=== PATIENT | male | born 1950 | race Caucasian/White ===

== ENCOUNTER 2021-05-07 11:31 | Inpatient (IN) | payer MEDICARE ==
[~2021-05-07] VITALS: Ht 170.2 cm; Wt 105.7 kg
[2021-05-07 12:01] LABS: HEMATOCRIT 29.2 % (36.7-47.1); MEAN CORPUSCULAR HEMOGLOBIN 32.4 uug (23.8-33.4); MEAN CORPUSCULAR VOLUME 92.8 fL (73.0-96.2); PLATELET COUNT (AUTO) 265 K/uL (152-348)
[2021-05-07 12:09] LABS: CARBON DIOXIDE 25 mmol/L (21-32); CHLORIDE 98 mmol/L (98-107); CREATININE 1.1 mg/dL (0.6-1.3); GLUCOSE 81 mg/dL (74-106); POTASSIUM 4.2 mmol/L (3.5-5.1); UREA NITROGEN, BLOOD 18 mg/dL (7-18)
[2021-05-07 12:11] LABS: ETHANOL < 3 MG/DL (0-0)
[2021-05-07 12:22] LABS: ALANINE AMINOTRANSFERASE 39 U/L (16-63); ALKALINE PHOSPHATASE 67 U/L (50-136); ASPARTATE AMINOTRANSFERASE 28 U/L (15-37); BILIRUBIN,DIRECT 0.1 mg/dL (0.0-0.2); BILIRUBIN,TOTAL 0.2 mg/dL (0.2-1.0); TOTAL PROTEIN, SERUM 7.6 g/dL (6.4-8.2)
[2021-05-07 12:25] LABS: ACETAMINOPHEN < 2.0 ug/mL (10-30)
[2021-05-07] MEDS ORDERED: RISP2TAB5 PO (12:26)
[2021-05-07] MEDS ORDERED: BENZ0.5T43 PO (12:26)
[2021-05-07] MEDS ORDERED: METF-866 PO (12:26)
[2021-05-07] MEDS ORDERED: OLAN5TAB70 PO (12:28)
[2021-05-07] MEDS ORDERED: ASCO500C18 PO (12:28)
[2021-05-07] MEDS ORDERED: LISI20TA30 PO (12:28)
[2021-05-07] MEDS ORDERED: PIOG45TA64 PO (12:30)
[2021-05-07] MEDS ORDERED: ATOR40TA29 PO (12:30)
[2021-05-07] MEDS ORDERED: REPA2TAB10 PO (12:30)
[2021-05-07] MEDS ORDERED: NA P133E RC (12:33)
[2021-05-07] MEDS ORDERED: MAGN400O6 PO (12:33)
[2021-05-07] MEDS ORDERED: BISA10SU61 RC (12:33)
[2021-05-07] MEDS ORDERED: LACT10SO7 PO (12:39)
[2021-05-07] MEDS ORDERED: ACET325T53 PO (12:39)
--- NOTE | 2021-05-07 12:41 | NUR ---
Medically cleared by Dr Harris, pending psych crisis evaluation@this time
--- NOTE | 2021-05-07 12:52 | NUR ---
Patient talked and said," Nurse, can you charge my cellphone? It is an [employer]."
--- NOTE | 2021-05-07 12:56 | NUR ---
Additionally, patient said, " Can I have something to drink so i can provide urine?" Diet Coke and water were provided.
--- NOTE | 2021-05-07 13:00 | NUR ---
Patient said, "Can I have something to eat?" Calm & cooperative@this time.
--- NOTE | 2021-05-07 13:05 | NUR ---
Patient is eating hot lunch tray with very good appetite.
[2021-05-07 13:31] LABS: *BILIRUBIN,URIN NEGATIVE (NEGATIVE); *BLOOD, URINE NEGATIVE (NEGATIVE); *CLARITY,URINE CLEAR (CLEAR); *COLOR,URINE YELLOW (YELLOW); *KETONES,URINE NEGATIVE (NEGATIVE); *UROBILINOGEN,URINE 0.2 E.U./dl (NORMAL); LEUKOCYTE ESTERASE ,URINE NEGATIVE (NEGATIVE); NITRITE, URINE NEGATIVE (NEGATIVE); PH,URINE 5.5 (5.0-8.0); UGLUCOSE NEGATIVE (NEGATIVE)
[2021-05-07 13:38] LABS: *AMPHETAMINE, URINE NEGATIVE (NEGATIVE); *CANNABINOID, URINE NEGATIVE (NEGATIVE); *COCCAINE, URINE NEGATIVE (NEGATIVE); *OPIATE, URINE NEGATIVE (NEGATIVE); *PHENCYCLIDINE SCREEN,URINE NEGATIVE (NEGATIVE)
--- NOTE | 2021-05-07 13:52 | NUR ---
Elias Lopez is here in ER.
--- NOTE | 2021-05-07 14:56 | NUR ---
Pt. admitted to [facility] , under care of Dr. Estevez. Belongs List completed. MRSA swab collected & sent to lab. SBAR to MHU nurse Freddie, pending admitting papers@this time.
--- NOTE | 2021-05-07 15:45 | NUR ---
GPS: Nursing Notes: Admitting Notes: Patient is awake and responding to his name, admitted to [facility]HU on 5150 DTS due to keep saying that he wants to to the staff and psychiatrist, patient wanted the [facility] to come and take him, A/Ox3, following staff directions, poor historian, evasive when questioned by staff, unkempt appearance, having wound on his back and left arm, wound care consultation order, Dr. Estevez and Dr. Bhatt informed of admission by the charge nurse, oriented to the unit by staff, admitting package given to the patient, continue to monitor for safety, continue with treatment plan.
[2021-05-07] MEDS ORDERED: ACETAMINOPHEN 325 MG TABLET PO PRN (16:00)
[2021-05-07] MEDS ORDERED: MAG HYDROX/AL HYDROX/SIMETH 30 ML LIQUID UDC PO PRN (16:00)
[2021-05-07] MEDS ORDERED: MAGNESIUM HYDROXIDE 30 ML LIQUID UDC PO PRN ×2 (16:00→18:15)
[2021-05-07] MEDS ORDERED: BLOOD SUGAR DIAGNOSTIC 1 EACH STRIP VI ONE (16:30)
[2021-05-07 17:58] VITALS: BP 103/53
[2021-05-07] MEDS ORDERED: FLEET ENEMA 133 ML BOTTLE RC PRN (18:15)
[2021-05-07] MEDS ORDERED: BISACODYL 10 MG SUPP.RECT RC PRN (18:15)
[2021-05-07] MEDS ORDERED: DEXTROSE 50% 50 ML DISP.SYRIN IV PRN (18:30)
[2021-05-07 19:46] VITALS: BP 112/54
[2021-05-07] MEDS: BLOOD SUGAR DIAGNOSTIC 1 EACH STRIP VI SCH (19:52)
[2021-05-07] MEDS: ATORVASTATIN 40 MG TABLET PO SCH (20:18)
[2021-05-07] MEDS ORDERED: ZOLPIDEM 5 MG TABLET PO PRN (22:45)
--- NOTE | 2021-05-08 01:11 | NUR ---
Received patient in his room with his eyes shut. This real estate underwriter was aware of the patient being awake. The patient would not speak to this real estate underwriter, only nod yes or no when asked questions. The patient refused to shower, refused insulin, ate food from the trash. The patient nodded no when asked if suicidal at that time. He did however come out of his room and sat in the day room for a hour. Safety stratiges are in place and continuing to monitor for compliance and behavior escalation.
[2021-05-08] MEDS: BLOOD SUGAR DIAGNOSTIC 1 EACH STRIP VI SCH ×4 (06:23→20:10)
[2021-05-08 07:23] LABS: CREATININE 1.1 mg/dL (0.6-1.3); POTASSIUM 4.5 mmol/L (3.5-5.1)
[2021-05-08 07:33] LABS: HEMATOCRIT 32.3 % (36.7-47.1); MEAN CORPUSCULAR HEMOGLOBIN 31.6 uug (23.8-33.4); PLATELET COUNT (AUTO) 331 K/uL (152-348)
[2021-05-08 08:00] LABS: PHOSPHOROUS 3.2 mg/dL (2.5-4.9)
[2021-05-08 08:01] VITALS: BP 120/69
[2021-05-08] MEDS: INSULIN REGULAR, HUMAN 300 UNIT/3 ML VIAL SQ PRN (08:32)
[2021-05-08] MEDS: METFORMIN XR 500 MG TAB.SR.24H PO SCH ×2 (08:34→17:00)
[2021-05-08] MEDS: ASCORBIC ACID 500 MG TABLET PO SCH (08:34)
[2021-05-08] MEDS: REPAGLINIDE 1 MG TABLET PO SCH (08:34)
[2021-05-08] MEDS ORDERED: REPAGLINIDE 2 MG PO SCH (09:00)
[2021-05-08] MEDS ORDERED: ASCORBIC ACID PO SCH (09:00)
--- NOTE | 2021-05-08 10:45 | NUR ---
GPS: Nursing Notes: Destructive Behavior To Self: Patient is awake and responding to his name, following staff directions, but selectively mute, episodes of talking to staff, denies SI, unkempt appearance, refusing to shower, evasive when questioned by staff, depressed mood and anxious affect at times, unable to formulate a viable for self care, continue to monitor for safety, poor eyes contact, continue with treatment plan.
--- NOTE | 2021-05-08 11:55 | NUR ---
WOUND CARE CONSULT: PT PRESENTS WITH WOUNDS/LESIONS TO LEFT UPPER ARM AND TO BACK, UNKNOWN ETIOLOGY, PRESENT ON ADMISSION. SEROSANGUINOUS DRAINAGE NOTED. SURGICAL CONSULT CALLED TO DR GUEVARA. PT IS AMBULATORY AND CONTINENT. IN AGREEMENT WITH PLAN OF CARE.
--- NOTE | 2021-05-08 12:19 | NUR ---
LALA Initial Discharge Plan: Per 5150 hold, pt was brought to [facility] from [facility] ([phone]) on a 5150 hold for a danger to himself. Pt currenty resides at [facility]. LALA contacted pt's DPOA, Julienne Kaminski ([phone]) for a call back to discuss pt's discharge plan. LALA will continue to work with pt, family and MD for a safe and proper discharge plan.
--- NOTE | 2021-05-08 12:20 | NUR ---
LALA Admit Source: Per 5150 hold, pt was brought to [facility] from [facility] ([phone]) on a 5150 hold for a danger to himself. Pt currenty resides at [facility]. LALA contacted pt's DPOA, Julienne Kaminski ([phone]) for a call back to discuss pt's discharge plan. LALA will continue to work with pt, family and MD for a safe and proper discharge plan.
[2021-05-08] MEDS ORDERED: LIDOCAINE 2%-EPI 1:100,000 20 ML VIAL IJ ONE (14:00)
[2021-05-08] MEDS ORDERED: SILVER NITRATE APPLICATOR STICK EACH TP ONE (14:00)
[2021-05-08] MEDS: OXCARBAZEPINE 300 MG TABLET PO SCH ×2 (14:46→20:11)
[2021-05-08] MEDS: BENZTROPINE MESYLATE 0.5 MG TABLET PO SCH ×2 (14:46→20:11)
[2021-05-08] MEDS: risperiDONE 2 MG TABLET PO SCH ×3 (14:46→20:11)
[2021-05-08] MEDS: OLANZAPINE 5 MG TABLET PO SCH ×2 (14:46→17:00)
[2021-05-08 15:48] LABS: THYROID STIMULATING HORMONE 2.347 mIU/mL (0.358-3.740)
[2021-05-08 15:52] VITALS: BP 126/66
--- NOTE | 2021-05-08 16:42 | NUR ---
BS check done to patient;. compliant. BS reading 80mg/dL. no coverage needed
[2021-05-08 20:04] VITALS: BP 124/64
[2021-05-08] MEDS: ATORVASTATIN 40 MG TABLET PO SCH (20:11)
[2021-05-09] MEDS: BLOOD SUGAR DIAGNOSTIC 1 EACH STRIP VI SCH ×4 (06:34→20:57)
[2021-05-09 07:30] VITALS: BP 133/71
[2021-05-09] MEDS: REPAGLINIDE 1 MG TABLET PO SCH (08:07)
[2021-05-09] MEDS: METFORMIN XR 500 MG TAB.SR.24H PO SCH ×2 (08:07→16:22)
[2021-05-09] MEDS: OXCARBAZEPINE 300 MG TABLET PO SCH ×2 (08:08→20:56)
[2021-05-09] MEDS: ASCORBIC ACID 500 MG TABLET PO SCH (08:08)
[2021-05-09] MEDS: OLANZAPINE 5 MG TABLET PO SCH ×3 (08:08→16:22)
[2021-05-09] MEDS: BENZTROPINE MESYLATE 0.5 MG TABLET PO SCH ×2 (08:08→16:22)
[2021-05-09] MEDS: risperiDONE 2 MG TABLET PO SCH ×3 (08:08→20:56)
[2021-05-09] MEDS ORDERED: LIDOCAINE 2%-EPI 1:100,000 20 ML VIAL IJ ONE (09:00)
[2021-05-09] MEDS ORDERED: SILVER NITRATE APPLICATOR STICK EACH TP ONE (09:00)
--- NOTE | 2021-05-09 15:00 | NUR ---
Assisted Dr Noa Andres with biopsy to the mid back. Patient tolerated well, denies pain. dressing done by . sample sent by Dr Andres to the lab. Will continue to monitor.
[2021-05-09 16:00] VITALS: BP 151/70
--- NOTE | 2021-05-09 18:45 | NUR ---
Patient remained stable. compliant with meds. denies SI or harm to others. participated in the group. no distress identified. all needs attended. all due meds given. safety measures maintained. will endorse to the next shift for continuity of care.
[2021-05-09 20:00] VITALS: BP 121/62
--- NOTE | 2021-05-09 20:00 | NUR ---
RECEIVED PATIENT IN THE DAYROOM WATCHING TV. HE IS NOTED A/O X 3. HE IS NOTED WITH LOW MOOD. PATIENT ONLY ANSWER QUESTIONS WITH A "YES" OR "NO". HE YARD HOSTLER WHAT HE WANTS OR NEED. HE MAKES HIS NEEDS KNOWN BY WRITING ON PAPER. PATIENT DENIED SI, HE IS ABLE TO CFS. HE IS REASSURED FOR HIS SAFETY. SAFETY AND FALL PRECAUTION IN PLACE. V/S STABLE, HE WAS GIVEN PO FLUIDS AND SNACKS. WILL CONTINUE TO MONITOR Q15 MIN CHECK.
[2021-05-09] MEDS: ATORVASTATIN 40 MG TABLET PO SCH (20:56)
[2021-05-09] MEDS: INSULIN REGULAR, HUMAN 300 UNIT/3 ML VIAL SQ PRN (21:07)
[2021-05-10] MEDS: BLOOD SUGAR DIAGNOSTIC 1 EACH STRIP VI SCH ×4 (06:32→20:34)
[2021-05-10 07:30] VITALS: BP 136/91
[2021-05-10] MEDS: OXCARBAZEPINE 300 MG TABLET PO SCH ×2 (08:24→20:34)
[2021-05-10] MEDS: ASCORBIC ACID 500 MG TABLET PO SCH (08:25)
[2021-05-10] MEDS: OLANZAPINE 5 MG TABLET PO SCH ×3 (08:25→17:15)
[2021-05-10] MEDS: risperiDONE 2 MG TABLET PO SCH ×3 (08:25→20:33)
[2021-05-10] MEDS: REPAGLINIDE 1 MG TABLET PO SCH (08:29)
[2021-05-10] MEDS: BENZTROPINE MESYLATE 0.5 MG TABLET PO SCH ×2 (08:29→17:14)
[2021-05-10] MEDS: METFORMIN XR 500 MG TAB.SR.24H PO SCH ×2 (08:29→17:14)
[2021-05-10] MEDS: INSULIN REGULAR, HUMAN 300 UNIT/3 ML VIAL SQ PRN ×2 (08:31→20:33)
--- NOTE | 2021-05-10 16:28 | NUR ---
Gps/Building Services Technician- Stayed in the activity room, preferred standing reading his magazines, compliant with routine meds. wound care upper back w/ xeroform and boarder dressings
[2021-05-10 17:10] VITALS: BP 164/84
[2021-05-10 20:00] VITALS: BP 102/53
[2021-05-10] MEDS: ATORVASTATIN 40 MG TABLET PO SCH (20:33)
[2021-05-11 07:30] VITALS: BP 131/69
[2021-05-11] MEDS: BLOOD SUGAR DIAGNOSTIC 1 EACH STRIP VI SCH ×4 (07:56→20:14)
[2021-05-11] MEDS: INSULIN REGULAR, HUMAN 300 UNIT/3 ML VIAL SQ PRN ×4 (07:59→20:23)
[2021-05-11] MEDS: risperiDONE 2 MG TABLET PO SCH ×3 (08:48→20:06)
[2021-05-11] MEDS: ASCORBIC ACID 500 MG TABLET PO SCH (08:49)
[2021-05-11] MEDS: OLANZAPINE 5 MG TABLET PO SCH ×3 (08:49→16:44)
[2021-05-11] MEDS: REPAGLINIDE 1 MG TABLET PO SCH (08:49)
[2021-05-11] MEDS: BENZTROPINE MESYLATE 0.5 MG TABLET PO SCH ×2 (08:49→16:44)
[2021-05-11] MEDS: METFORMIN XR 500 MG TAB.SR.24H PO SCH ×2 (08:49→16:43)
[2021-05-11] MEDS: OXCARBAZEPINE 300 MG TABLET PO SCH ×2 (08:50→20:06)
[2021-05-11 15:40] VITALS: BP 134/77
[2021-05-11] MEDS: ATORVASTATIN 40 MG TABLET PO SCH (20:06)
[2021-05-11 20:42] VITALS: BP 122/55
[2021-05-12] MEDS: BLOOD SUGAR DIAGNOSTIC 1 EACH STRIP VI SCH ×4 (06:26→20:20)
[2021-05-12] MEDS: OXCARBAZEPINE 300 MG TABLET PO SCH ×2 (08:37→20:21)
[2021-05-12] MEDS: ASCORBIC ACID 500 MG TABLET PO SCH (08:37)
[2021-05-12] MEDS: risperiDONE 2 MG TABLET PO SCH ×3 (08:37→20:21)
[2021-05-12] MEDS: OLANZAPINE 5 MG TABLET PO SCH ×3 (08:38→17:01)
[2021-05-12] MEDS: BENZTROPINE MESYLATE 0.5 MG TABLET PO SCH ×2 (08:38→17:01)
[2021-05-12] MEDS: METFORMIN XR 500 MG TAB.SR.24H PO SCH ×2 (08:39→17:01)
[2021-05-12] MEDS: REPAGLINIDE 1 MG TABLET PO SCH (08:40)
[2021-05-12 08:43] VITALS: BP 134/54
--- NOTE | 2021-05-12 14:40 | NUR ---
GPS: Nursing Notes: Destructive Behavior To Self: Patient is awake and responding to his name, needs prompting to participate in therapeutic groups, compliant with his medications, unkempt appearance, refusing to shower, denies SI, believes that he is getting better, present in therapeutic groups, but noninteractive with peers, unable to formulate a viable plan for self care, continue to monitor for safety, continue with treatment plan.
[2021-05-12 15:58] VITALS: BP 121/74
[2021-05-12 20:00] VITALS: BP 143/69
[2021-05-12] MEDS: BISACODYL 10 MG SUPP.RECT RC PRN ×2 (20:10→20:20)
[2021-05-12] MEDS: ATORVASTATIN 40 MG TABLET PO SCH (20:21)
--- NOTE | 2021-05-13 03:51 | NUR ---
Received patient at the start of the shift, nonverbal with this clinical writer. The patient would however nod his head up and down when asked specific YES and NO questions. The patient is unkept and refused to shave or take a shower. His gown is dirty, and the patient appears depressed, has poor eye contact and reluctant to engage in any self care activities or meaningful interactions with staff and peers. Safety stratiges are in place and monitoring for SI.
[2021-05-13] MEDS: BLOOD SUGAR DIAGNOSTIC 1 EACH STRIP VI SCH ×4 (05:56→20:22)
[2021-05-13] MEDS: REPAGLINIDE 1 MG TABLET PO SCH (08:21)
[2021-05-13] MEDS: METFORMIN XR 500 MG TAB.SR.24H PO SCH ×2 (08:21→16:40)
[2021-05-13] MEDS: OXCARBAZEPINE 300 MG TABLET PO SCH ×2 (08:22→20:21)
[2021-05-13] MEDS: ASCORBIC ACID 500 MG TABLET PO SCH (08:22)
[2021-05-13] MEDS: BENZTROPINE MESYLATE 0.5 MG TABLET PO SCH ×2 (08:22→16:40)
[2021-05-13] MEDS: risperiDONE 2 MG TABLET PO SCH ×3 (08:22→20:21)
[2021-05-13] MEDS: OLANZAPINE 5 MG TABLET PO SCH ×3 (08:22→16:40)
[2021-05-13 08:56] VITALS: BP 123/68
[2021-05-13 16:51] VITALS: BP 112/80
--- NOTE | 2021-05-13 17:43 | NUR ---
GPS: Nursing Notes: Destructive Behavior to Self: Patient is awake and responding to his name, cooperative with nursing care, unkempt appearance, compliant with his medications, believes that he getting better, present in therapeutic groups, minimal interactions with peers, unable to formulate a viable plan for self care, denies SI/HI, believes that he is going to be discharge tomorrow, continue to verbally nadja for safety, continue with treatment plan.
[2021-05-13 20:08] VITALS: BP 140/68
[2021-05-13] MEDS: ATORVASTATIN 40 MG TABLET PO SCH (20:22)
[2021-05-13] MEDS: INSULIN REGULAR, HUMAN 300 UNIT/3 ML VIAL SQ PRN (20:23)
[2021-05-14] MEDS: BLOOD SUGAR DIAGNOSTIC 1 EACH STRIP VI SCH ×4 (06:22→20:57)
[2021-05-14 07:53] VITALS: BP 144/90
[2021-05-14] MEDS: risperiDONE 2 MG TABLET PO SCH ×3 (08:46→20:56)
[2021-05-14] MEDS: METFORMIN XR 500 MG TAB.SR.24H PO SCH ×2 (08:46→16:35)
[2021-05-14] MEDS: REPAGLINIDE 1 MG TABLET PO SCH (08:46)
[2021-05-14] MEDS: ASCORBIC ACID 500 MG TABLET PO SCH (08:47)
[2021-05-14] MEDS: OLANZAPINE 5 MG TABLET PO SCH ×4 (08:47→20:56)
[2021-05-14] MEDS: BENZTROPINE MESYLATE 0.5 MG TABLET PO SCH ×2 (08:47→16:36)
[2021-05-14] MEDS: OXCARBAZEPINE 300 MG TABLET PO SCH ×3 (08:47→20:55)
--- NOTE | 2021-05-14 14:49 | NUR ---
GPS: Nursing Notes: Destructive Behavior to Self: Patient is awake and responding to his name, selectively mute, preoccupied by reading his Bible, present in therapeutic groups, but needs prompting to interact with peers, depressed mood and flat affect, unable to formulate a viable plan for self care, unkempt appearance, continue to monitor for safety, verbally nadja for safety, continue with treatment plan.
[2021-05-14 16:02] VITALS: BP 115/79
[2021-05-14 19:54] VITALS: BP 141/76
[2021-05-14] MEDS: ATORVASTATIN 40 MG TABLET PO SCH (20:56)
[2021-05-14] MEDS: INSULIN REGULAR, HUMAN 300 UNIT/3 ML VIAL SQ PRN (20:59)
--- NOTE | 2021-05-15 06:04 | NUR ---
Patient noted with flat affect behavior, remain calm and cooperative with the treatment. Able to slept for 8 hours. Safety strategies provided.
[2021-05-15] MEDS: BLOOD SUGAR DIAGNOSTIC 1 EACH STRIP VI SCH ×4 (06:41→21:25)
[2021-05-15 08:00] VITALS: BP 141/74
[2021-05-15] MEDS: ASCORBIC ACID 500 MG TABLET PO SCH (08:17)
[2021-05-15] MEDS: METFORMIN XR 500 MG TAB.SR.24H PO SCH ×2 (08:17→17:28)
[2021-05-15] MEDS: risperiDONE 2 MG TABLET PO SCH ×3 (08:17→21:24)
[2021-05-15] MEDS: REPAGLINIDE 1 MG TABLET PO SCH (08:17)
[2021-05-15] MEDS: BENZTROPINE MESYLATE 0.5 MG TABLET PO SCH ×2 (08:18→17:28)
[2021-05-15] MEDS: OLANZAPINE 5 MG TABLET PO SCH ×4 (08:18→21:24)
[2021-05-15] MEDS: OXCARBAZEPINE 300 MG TABLET PO SCH ×3 (08:18→21:25)
--- NOTE | 2021-05-15 09:00 | NUR ---
LALA Family Contact: SW called and left 2 voicemail for pt's cousin, Julienne ([phone]) for a call back to discuss discharge plan.
--- NOTE | 2021-05-15 10:25 | NUR ---
LALA Discharge Update: LALA contacted pt's DPOA, Julienne Kaminski ([phone]) and left 2 voicemail for a call back to discuss pt's discharge plan. LALA still has not been able to connect with Julienne. [facility]. LALA will continue to work with pt, family and MD for a safe and proper discharge plan.
--- NOTE | 2021-05-15 11:30 | NUR ---
GPS: COURT HEARING DONE PT PARTICIPATED WITH. PT STATED TO YOGA TEACHER THAT SHE LIED TO PSYCHIATRIST THAT HE WANTS TO HARM SELF. PER PT, HE WANTS TO GO TO [facility] IN [place]. YOGA TEACHER ASK HIM HOW WAS HE TREATED TO THE PREVIOUS PLACE, HE STATED HE WAS NOT HAPPY THERE, NO ACTIVITIES AND ALL PT ARE SICK.
[2021-05-15] MEDS: INSULIN REGULAR, HUMAN 300 UNIT/3 ML VIAL SQ PRN ×2 (12:19→21:28)
--- NOTE | 2021-05-15 12:59 | NUR ---
report given to JEIMY Ronquillo, patient is in stable condition
--- NOTE | 2021-05-15 13:00 | NUR ---
Eating lunch at bedside, able to consume 100% of food served. Joined in the dining area after. Responds to interaction. Reading his book. Compliant with taking medications.
--- NOTE | 2021-05-15 14:00 | NUR ---
Wound care done to LFA and mid back as ordered.
[2021-05-15 16:00] VITALS: BP 129/80
--- NOTE | 2021-05-15 18:11 | NUR ---
responds to interaction. Compliant with taking of medication. Calm and cooperative
[2021-05-15 21:03] VITALS: BP 125/68
[2021-05-15] MEDS: ATORVASTATIN 40 MG TABLET PO SCH (21:24)
--- NOTE | 2021-05-16 04:20 | NUR ---
Patient noted to be calm, no aggressive behavior noted, selectively mute but able to follow directions. Cooperative when taking his medications. Able to slept well at night. Wound dressing at left mid back done.
[2021-05-16] MEDS: BLOOD SUGAR DIAGNOSTIC 1 EACH STRIP VI SCH ×4 (06:26→20:07)
--- NOTE | 2021-05-16 06:59 | NUR ---
Patient slept for approx 5.30 hrs through the night. He remains complaint with medication regiment, diet and plan of care. Lesion on his mid left back noted dry, no S/S of infection noted at this time. Pictures was taken and placed in his chart, dressing was done. Will endorse accordingly.
[2021-05-16 07:30] VITALS: BP 144/77
--- NOTE | 2021-05-16 07:30 | NUR ---
Sitting at edge of bed, reading book. When ask how he is, he signalled with thumbs down. When asked why, he shrugged his shoulder. Withdrawn, flat affect.
[2021-05-16] MEDS: risperiDONE 2 MG TABLET PO SCH ×3 (08:26→20:05)
[2021-05-16] MEDS: BENZTROPINE MESYLATE 0.5 MG TABLET PO SCH ×2 (08:27→17:22)
[2021-05-16] MEDS: REPAGLINIDE 1 MG TABLET PO SCH (08:27)
[2021-05-16] MEDS: OXCARBAZEPINE 300 MG TABLET PO SCH ×3 (08:27→20:06)
[2021-05-16] MEDS: METFORMIN XR 500 MG TAB.SR.24H PO SCH ×2 (08:27→17:22)
[2021-05-16] MEDS: OLANZAPINE 5 MG TABLET PO SCH ×4 (08:28→20:06)
[2021-05-16] MEDS: ASCORBIC ACID 500 MG TABLET PO SCH (08:28)
--- NOTE | 2021-05-16 11:37 | NUR ---
LALA Family Contact: LALA called and left a voicemail for pt's cousin, Julienne ([phone]) stating LALA's fax number for Julienne to send DPOA paperwork.
--- NOTE | 2021-05-16 12:30 | NUR ---
Eating in the dining room. Initiated and exchanged conversation, smiling.
--- NOTE | 2021-05-16 15:17 | NUR ---
LALA Coordination of Care: Insulation Estimator faxed patient's referral packet including: History and Physical, Consultation, Progress Notes, Medication List and Labs to the following facilities for review and possible custodial placement: [place] [id number] ([phone]).
[2021-05-16 16:00] VITALS: BP 132/72
--- NOTE | 2021-05-16 18:19 | NUR ---
Stayed most of the afternoon in the dining room reading a book. Ate 100% of meal. Refused to talk to family on the phone. Compliant with taking medication
[2021-05-16 20:00] VITALS: BP 125/74
[2021-05-16] MEDS: ATORVASTATIN 40 MG TABLET PO SCH (20:06)
--- NOTE | 2021-05-17 05:06 | NUR ---
This patient has been mute with this journalists and other writers the entire shift. When asked about having feelings of SI, the patients response was a thumbs down gesture with his hands. The patient is unkept and has not taken a shower for many days. Although he spent a lot of time in the day room, there was no interaction noted with other people. Safety stratiges are in place and this journalists and other writers will continue to encourage the patient to bathe and / or open up about his feeling.
[2021-05-17] MEDS: BLOOD SUGAR DIAGNOSTIC 1 EACH STRIP VI SCH ×4 (05:52→20:40)
[2021-05-17 08:05] VITALS: BP 140/67
[2021-05-17] MEDS: BENZTROPINE MESYLATE 0.5 MG TABLET PO SCH ×2 (08:19→17:48)
[2021-05-17] MEDS: risperiDONE 2 MG TABLET PO SCH ×3 (08:19→20:40)
[2021-05-17] MEDS: OLANZAPINE 5 MG TABLET PO SCH ×4 (08:19→20:40)
[2021-05-17] MEDS: OXCARBAZEPINE 300 MG TABLET PO SCH ×3 (08:19→20:40)
[2021-05-17] MEDS: REPAGLINIDE 1 MG TABLET PO SCH (08:20)
[2021-05-17] MEDS: METFORMIN XR 500 MG TAB.SR.24H PO SCH ×2 (08:20→17:48)
[2021-05-17] MEDS: ASCORBIC ACID 500 MG TABLET PO SCH (08:21)
--- NOTE | 2021-05-17 08:33 | NUR ---
LALA Family Contact: LALA called and left a voicemail for pt's cousin, Julienne ([phone]) stating LALA's fax number for Julienne to send DPOA paperwork. LALA also stated that LALA did leave a voicemail on 05/16/21 due to Julienne's voicemail stating that SW has not gotten back to her. LALA updated Julienne that LALA has sent pt's referral packet to their desired board and care [facility] and spoke with the admissions, Josh [phone]. LALA will continue to follow-up with the board and care.
[2021-05-17] MEDS: INSULIN REGULAR, HUMAN 300 UNIT/3 ML VIAL SQ PRN (13:28)
--- NOTE | 2021-05-17 15:35 | NUR ---
Received patient sleeping in his room. A/O X 3 to person, place. Pt. is fixated on reading the bible, isolative, anxious but refusing Ativan. Blood glucose was 170, 3 units given per slide scale. Self care. Pt. is disheveled, refusing shower for 8 days. Compliant with medications. Emotional support provided. Fall and safety precautions implemented.
[2021-05-17 16:00] VITALS: BP 123/53
--- NOTE | 2021-05-17 18:21 | NUR ---
Patient verbalizes "I'm hearing evil voices telling me I'm not worth it, and they're going to send me to hell".
[2021-05-17] MEDS: ATORVASTATIN 40 MG TABLET PO SCH (20:39)
[2021-05-17 20:51] VITALS: BP 130/74
--- NOTE | 2021-05-17 21:46 | NUR ---
Patient is conversant with his roommate in calm manner. Compliant with the medication and during wound dressing. Patient did not mention about hearing or seeing demons.
--- NOTE | 2021-05-18 06:10 | NUR ---
Patient slept well at night for 5.45 hrs. Patient woke up and wanted to take a shower. Patient is conversant with appropriate answers. No aggressive behavior nor claiming of hearing voices observed. Safety strategies in placed and will continue to monitor.
[2021-05-18] MEDS: BLOOD SUGAR DIAGNOSTIC 1 EACH STRIP VI SCH ×4 (06:19→20:23)
[2021-05-18 08:14] VITALS: BP 144/63
[2021-05-18] MEDS: OLANZAPINE 5 MG TABLET PO SCH ×4 (08:48→20:23)
[2021-05-18] MEDS: OXCARBAZEPINE 300 MG TABLET PO SCH ×3 (08:49→20:23)
[2021-05-18] MEDS: risperiDONE 2 MG TABLET PO SCH ×3 (08:49→20:23)
[2021-05-18] MEDS: BENZTROPINE MESYLATE 0.5 MG TABLET PO SCH ×2 (08:49→17:36)
[2021-05-18] MEDS: ASCORBIC ACID 500 MG TABLET PO SCH (08:49)
[2021-05-18] MEDS: REPAGLINIDE 1 MG TABLET PO SCH (08:50)
[2021-05-18] MEDS: METFORMIN XR 500 MG TAB.SR.24H PO SCH ×2 (08:59→17:37)
[2021-05-18] MEDS: INSULIN REGULAR, HUMAN 300 UNIT/3 ML VIAL SQ PRN (11:46)
[2021-05-18 11:49] LABS: HEMATOCRIT 33.3 % (36.7-47.1); MEAN CORPUSCULAR HEMOGLOBIN 32.6 uug (23.8-33.4); MEAN CORPUSCULAR VOLUME 94.2 fL (73.0-96.2); PLATELET COUNT (AUTO) 334 K/uL (152-348)
[2021-05-18 11:56] LABS: BILIRUBIN,TOTAL 0.3 mg/dL (0.2-1.0); CREATININE 1.1 mg/dL (0.6-1.3); POTASSIUM 3.6 mmol/L (3.5-5.1); TOTAL PROTEIN, SERUM 8.6 g/dL (6.4-8.2)
[2021-05-18 16:00] VITALS: BP 134/76
--- NOTE | 2021-05-18 16:22 | NUR ---
LALA Discharge Update: LALA contacted pt's liaShalonda reddy ([phone]) and Shalonda stated that Josh from [facility] ([phone]) will provide transportation for the pt on 05/21/21. LALA contacted Josh and confirmed transportation at 11AM. Shalonda stated to LALA that Julienne is aware and agreeable with the discharge plan.
[2021-05-18 20:00] VITALS: BP 122/72
[2021-05-18] MEDS: ATORVASTATIN 40 MG TABLET PO SCH (20:23)
--- NOTE | 2021-05-18 20:25 | NUR ---
Received patient in the day room. he is noted A/O x 2 calm and pleasant upon approached. he is noted less isolative less withdrawn. he is able to verbalized feelings. he continue compliant with medication regiment diet and care. BG QHS is 119 (no coverage)/ V/S stable. He is reassured for his safety. safety and fall precaution are in place. he was given PO fluids and snacks. will continue to monitor.
[2021-05-19] MEDS: BLOOD SUGAR DIAGNOSTIC 1 EACH STRIP VI SCH ×4 (08:13→20:15)
[2021-05-19] MEDS: REPAGLINIDE 1 MG TABLET PO SCH (08:25)
[2021-05-19] MEDS: ASCORBIC ACID 500 MG TABLET PO SCH (08:25)
[2021-05-19] MEDS: METFORMIN XR 500 MG TAB.SR.24H PO SCH ×2 (08:26→16:58)
[2021-05-19] MEDS: OXCARBAZEPINE 300 MG TABLET PO SCH ×3 (08:26→20:16)
[2021-05-19] MEDS: BENZTROPINE MESYLATE 0.5 MG TABLET PO SCH ×2 (08:26→16:58)
[2021-05-19] MEDS: OLANZAPINE 5 MG TABLET PO SCH ×3 (08:26→20:15)
[2021-05-19] MEDS: risperiDONE 2 MG TABLET PO SCH ×3 (08:26→20:16)
[2021-05-19 09:50] VITALS: BP 130/67
--- NOTE | 2021-05-19 14:00 | NUR ---
Gps/Fitness Worker- Had been interacting with staff , cooperative, making his simple needs known. Deneis any discomfort likes to read.
[2021-05-19 16:20] VITALS: BP 145/66
[2021-05-19 20:00] VITALS: BP 148/70
[2021-05-19] MEDS: ATORVASTATIN 40 MG TABLET PO SCH (20:15)
[2021-05-19] MEDS: INSULIN REGULAR, HUMAN 300 UNIT/3 ML VIAL SQ PRN (20:21)
[2021-05-20] MEDS: BLOOD SUGAR DIAGNOSTIC 1 EACH STRIP VI SCH ×4 (06:32→20:24)
[2021-05-20 07:30] VITALS: BP 131/71
[2021-05-20] MEDS: METFORMIN XR 500 MG TAB.SR.24H PO SCH ×2 (08:31→17:36)
[2021-05-20] MEDS: BENZTROPINE MESYLATE 0.5 MG TABLET PO SCH ×2 (08:31→17:37)
[2021-05-20] MEDS: OLANZAPINE 5 MG TABLET PO SCH ×3 (08:31→20:25)
[2021-05-20] MEDS: OXCARBAZEPINE 300 MG TABLET PO SCH ×3 (08:31→20:25)
[2021-05-20] MEDS: ASCORBIC ACID 500 MG TABLET PO SCH (08:31)
[2021-05-20] MEDS: risperiDONE 2 MG TABLET PO SCH ×3 (08:31→20:25)
[2021-05-20] MEDS: REPAGLINIDE 1 MG TABLET PO SCH (08:32)
[2021-05-20 16:00] VITALS: BP 143/77
--- NOTE | 2021-05-20 17:30 | NUR ---
Gps/Motorcycle Technician- Patient was swabbed for Covid this pm. , claimed looking forward to his discharge tomorrow.
[2021-05-20 19:59] VITALS: BP 129/69
[2021-05-20] MEDS: ATORVASTATIN 40 MG TABLET PO SCH (20:25)
[2021-05-21] MEDS: BLOOD SUGAR DIAGNOSTIC 1 EACH STRIP VI SCH (06:01)
--- NOTE | 2021-05-21 06:22 | NUR ---
Patient was up late, he allowed this play writer to give him a shave but refused to shower. The patient had a long meaningful conversation with play writer for the first time. He verbalized being happy about his discharge and denies SI. Total sleep hours are 5.00 so far. Safety Stratiges remain in place.
[2021-05-21 07:49] VITALS: BP 143/88
[2021-05-21] MEDS: REPAGLINIDE 1 MG TABLET PO SCH (09:26)
[2021-05-21] MEDS: OLANZAPINE 5 MG TABLET PO SCH (09:26)
[2021-05-21] MEDS: risperiDONE 2 MG TABLET PO SCH (09:27)
[2021-05-21] MEDS: OXCARBAZEPINE 300 MG TABLET PO SCH (09:27)
[2021-05-21] MEDS: ASCORBIC ACID 500 MG TABLET PO SCH (09:27)
[2021-05-21] MEDS: BENZTROPINE MESYLATE 0.5 MG TABLET PO SCH (09:27)
[2021-05-21] MEDS: METFORMIN XR 500 MG TAB.SR.24H PO SCH (09:27)
--- NOTE | 2021-05-21 09:36 | NUR ---
LALA Discharge Note: Pt will be discharged to [facility] and [place] [address] via [facility], Josh ([phone]) transportation at 11AM. LALA spoke with admin coordinatorJosh at the [facility] who states they are ready to accept the patient today. Pt is aware and agreeable with discharge plans. Pts cousin, Julienne (DPOA [phone]) is aware and agreeable with the discharge plan and transportation. Pts liaison, Alban ([phone]) is aware and agreeable with the discharge plan and transportation. Pt is alert and oriented x4, is unable to plan for self-care at this time; however, is willing to accept care at SNF. Pt denies any suicidal or homicidal ideation. Pt will follow-up at the [facility] and care with his Database Support. Pt presents with calm mood and congruent affect. Board and [facility]: [facility]: ([phone]) F: ([phone]).
--- NOTE | 2021-05-21 11:30 | NUR ---
GPS: Nursing Notes: Discharge Notes: Patient is awake and responding to his name, cooperative with nursing care, compliant with his medications, following staff directions, denies SI/HI, denies AH/VH, denies pain or discomfort, denies SOB, discharge to [facility] at [address] [place], [place] [id number], picked up by Josh , report given to Josh - [employer] coordinator, patient's cousin/DPLUCINA - Julienne informed of discharge by manager social services, took all his valuable with him, facility to follow up with his psychiatrist and certified substance abuse counselor as soon as possible for aftercare. Dr. Estevez and Julienne Raphael, CERTIFIED TOWER CLIMBER order his medication with [facility] .
== END 2021-05-21 11:30 | DRG 885 ==
LOC: ER 11:31 → GPS 15:02
PROVIDERS: ADMIT Psychiatry & Neurology Psychosomatic Medicine; ATTEND Internal Medicine
PROC: 0J970ZZ Drainage of Back Subcutaneous Tissue and Fascia, Open Approach (ICD-10-PCS; principal; 2021-05-09)
DX: F25.9 Schizoaffective disorder, unspecified (principal); E11.65 Type 2 diabetes mellitus with hyperglycemia; R45.851 Suicidal ideations; E87.1 Hypo-osmolality and hyponatremia; D68.59 Other primary thrombophilia; Z79.84 Long term (current) use of oral hypoglycemic drugs; E66.01 Morbid (severe) obesity due to excess calories; Z68.36 Body mass index [BMI] 36.0-36.9, adult; E78.5 Hyperlipidemia, unspecified; F60.9 Personality disorder, unspecified; Z20.822 Contact with and (suspected) exposure to COVID-19; Z74.09 Other reduced mobility; D63.8 Anemia in other chronic diseases classified elsewhere; S21.209A Unspecified open wound of unspecified back wall of thorax without penetration into thoracic cavity, initial encounter; S41.102A Unspecified open wound of left upper arm, initial encounter; X58.XXXA Exposure to other specified factors, initial encounter; Y93.9 Activity, unspecified; Y92.89 Other specified places as the place of occurrence of the external cause; I10 Essential (primary) hypertension; Z79.899 Other long term (current) drug therapy
CPT/HCPCS: 36415; 71045; 83735; 84100; 84443; 85025; 93005; 97161; A6209; G0480; J1815